=== PATIENT | female | born 1990 | race Caucasian/White ===

== ENCOUNTER 2017-04-16 13:28 | Inpatient (IN) ==
--- NOTE | 2017-04-16 14:00 | Emergency Department Report ---
Nausea/Vomiting/Diarrhea HPI - General Chief complaint: Abdominal Pain Stated complaint: Stomach pain, rectal bleeding Time Seen by Provider: 04/16/17 13:34 Source: patient Mode of arrival: ambulatory Limitations: no limitations - History of Present Illness HPI Narrative: 26yo woman presents to the ER for evaluation of bloody diarrhea. Pt has had two days of bloody stools; today had an episode of hematemesis. Abd pain started last night, but has gotten worse today. Pt has never had sx like this before. Uses ibuprofen occasionally. No h/o anal insertions. Does have a h/o H pylori, but was treated with a prev-marcello and has not had sx since. MD complaint: vomiting, diarrhea, abdominal pain Onset (ago): day(s) (2) Description of Vomiting: blood-streaked Description of Diarrhea: bloody Associated Abdominal Pain: Yes Location of pain: diffuse Quality: cramping, aching Consistency: constant Relieving factors: none Exacerbating factors: eating, bowel movement, vomiting, movement Associated symptoms: denies other symptoms - Related Data Home Medications Medication Instructions Recorded Confirmed Levothyroxine Sodium 88 mcg PO ACB #0 04/09/16 04/16/17 Buspirone [Buspar] 10 mg PO TID 04/16/17 04/16/17 Trazodone HCl 150 mg PO HS 04/16/17 04/16/17 Allergies Allergy/AdvReac Type Severity Reaction Status Date / Time No Known Allergies Allergy Verified 04/16/17 13:45 Review of Systems All systems: reviewed and negative except as stated Gastrointestinal: Reports: as per HPI, abdominal pain, nausea, vomiting, hematochezia [facility] Patient Stated Medical History Now No Medical History Updates: Depr. Hypothyroid. Chronic pain Physical Exam - Limitations Limitations: no limitations - General General appearance: alert, in no apparent distress - Normal Exams: Head:: Normocephalic without trauma Eyes:: Pupils are PERRLA w/ EOMI, No scleral icterus, irritation, or foreign bodies noted ENMT:: No facial trauma, nasal exudates, pharyngeal erythema, or exudates are noted Neck:: Full range of motion, without adenopathy Chest/Respirations:: Clear all leavitt, with good airflow, and symmetry bilaterally Cardiovascular:: Regular rate and rhythm, without murmur or gallop, Pulses 2+ all extremities, capillary refill, <2 seconds all extremities Lymphatic:: No lymphadenopathy, or lymphedema noted Musculoskeletal:: No tenderness, or deformity noted Integumentary:: No rashes, hives, or bruising noted Neurological:: Patient is alert, and oriented Psychiatric:: Patient exhibits, appropriate attention - Abdominal Exam Abdominal exam: Present: soft, tenderness, normal bowel sounds. Absent: distention, guarding, rebound, psoas sign, obturator sign, heel tap sign, Shen 's sign, Rovsing's sign, tenderness at McBurney's Point, hernia Abdominal tenderness: Present: diffuse Course - Consultations Consultation #1: Hospitalist: Will present to the ER for evaluation of pt. Time: 15:56 Vital Signs Temperature 98.1 F 04/16/17 13:30 Pulse Rate 118 H 04/16/17 13:30 Respiratory Rate 16 04/16/17 13:30 Blood Pressure 141/96 H 04/16/17 13:30 Pulse Oximetry 96 04/16/17 13:30 Temperature 98.1 F 04/16/17 13:30 Pulse Rate 90 04/16/17 14:45 Respiratory Rate 16 04/16/17 13:30 Blood Pressure 111/76 04/16/17 14:30 Pulse Oximetry 98 04/16/17 14:45 Nausea/Vomiting/Diarrhea - Differential Diagnosis Likely: traveler's diarrhea, food poisoning, gastroenteritis, drug-induced nausea and vomiting, dehydration - Medical Records Attestation: I reviewed the patient's medical records. - Lab Data Attestation: I reviewed the patient's lab results. Result diagrams: 04/16/17 14:07 04/16/17 14:07 Lab Results 04/16/17 04/16/17 04/16/17 Range/Units 14:06 14:07 14:07 WBC 3.9 L (4.5-11.0) T/MM3 RBC 4.81 (4.00-5.20) M/MM3 Hgb 15.5 (12-16) GM/DL Hct 45.8 (36-46) % MCV 95.2 (80-100) UM3 MCH 32.2 (26-34) UUG MCHC 33.8 (31-37) GM/DL RDW Std Deviation 41.9 (36.9-50.2) FL Plt Count 246 (130-400) T/MM3 MPV 10.6 (9.4-12.4) UM3 Neutrophils % (Manual) 63.0 (33-66) % Band Neutrophils % 3.0 (0-6) % Lymphocytes % (Manual) 19.0 L (23-45) % Monocytes % (Manual) 13.0 H (0-9.0) % Eosinophils % (Manual) 1.0 (0-4) % Metamyelocytes % 1.0 H (0-0) % Neutrophils # (Manual) 2.5 (1.8-7.7) T/MM3 Band Neutrophils # 0.1 T/MM3 Lymphocytes # (Manual) 0.7 L (1-4.8) T/MM3 Monocytes # (Manual) 0.5 (0-0.8) T/MM3 Eosinophils # (Manual) 0.0 (0-0.5) T/MM3 Metamyelocytes # 0.0 T/MM3 RBC Morph Comment Normal INR 1.08 (0.99-1.21) APTT 29.5 (24-36) SEC Turbidity (0-20) Sodium (134-144) MEQ/L Potassium (3.6-5) MEQ/L Chloride (98-107) MEQ/L Carbon Dioxide (22-30) MEQ/L Anion Gap (5-15) MEQ/L BUN (7-17) MG/DL Creatinine (0.7-1.2) MG/DL GFR Calculation BUN/Creatinine Ratio (6-26) RATIO Glucose (65-110) MG/DL Calculated Osmolality (261-280) MOSM/KG Calcium (8.4-10.2) MG/DL Total Bilirubin (0.20-1.30) MG/DL Icterus Index (0-7) AST (14-36) U/L ALT (9-52) U/L Alkaline Phosphatase (38-126) U/L Total Protein (6.3-8.2) G/DL Albumin (3.5-5.0) G/DL Globulin (2.4-3.6) G/DL Albumin/Globulin Ratio (1.1-2.2) RATIO Lipase (23-300) U/L Serum , Qual Negative (Negative) Specimen Hemolysis (0-25) // Range/Units 14:07 WBC (4.5-11.0) T/MM3 RBC (4.00-5.20) M/MM3 Hgb (12-16) GM/DL Hct (36-46) % MCV (80-100) UM3 MCH (26-34) UUG MCHC (31-37) GM/DL RDW Std Deviation (36.9-50.2) FL Plt Count (130-400) T/MM3 MPV (9.4-12.4) UM3 Neutrophils % (Manual) (33-66) % Band Neutrophils % (0-6) % Lymphocytes % (Manual) (23-45) % Monocytes % (Manual) (0-9.0) % Eosinophils % (Manual) (0-4) % Metamyelocytes % (0-0) % Neutrophils # (Manual) (1.8-7.7) T/MM3 Band Neutrophils # T/MM3 Lymphocytes # (Manual) (1-4.8) T/MM3 Monocytes # (Manual) (0-0.8) T/MM3 Eosinophils # (Manual) (0-0.5) T/MM3 Metamyelocytes # T/MM3 RBC Morph Comment INR (0.99-1.21) APTT (24-36) SEC Turbidity < 20 (0-20) Sodium 143 (134-144) MEQ/L Potassium 3.5 L (3.6-5) MEQ/L Chloride 105 (98-107) MEQ/L Carbon Dioxide 26 (22-30) MEQ/L Anion Gap 12 (5-15) MEQ/L BUN 11.0 (7-17) MG/DL Creatinine 0.9 (0.7-1.2) MG/DL GFR Calculation 75 BUN/Creatinine Ratio 12 (6-26) RATIO Glucose 86 (65-110) MG/DL Calculated Osmolality 273 (261-280) MOSM/KG Calcium 10.1 (8.4-10.2) MG/DL Total Bilirubin 0.90 (0.20-1.30) MG/DL Icterus Index < 2 (0-7) AST 18 (14-36) U/L ALT 32 (9-52) U/L Alkaline Phosphatase 57 (38-126) U/L Total Protein 7.6 (6.3-8.2) G/DL Albumin 4.7 (3.5-5.0) G/DL Globulin 2.9 (2.4-3.6) G/DL Albumin/Globulin Ratio 1.6 (1.1-2.2) RATIO Lipase 51 (23-300) U/L Serum , Qual (Negative) Specimen Hemolysis < 15 (0-25) - Radiology Data Attestation: I reviewed the patient's radiology results. CXR: IMPRESSION: No acute cardiopulmonary abnormality. CT ABD/PELV: Findings: The lung bases are clear. The liver is normal. The gallbladder, spleen, pancreas and adrenal glands are within normal limits. Kidneys show a few low-attenuation foci which are too small to definitively characterize. Large 8 mm stone in the superior pole of the right kidney. No abdominal or pelvic lymphadenopathy. The bladder appears normal. Uterus is within normal limits. Small amount of free pelvic fluid. Rectum appears normal. Evaluation is somewhat limited given the absence of oral contrast. No evidence of a bowel obstruction. Splenic flexure of the colon is quite decompressed as is the transverse colon. There is suggestion of some colonic wall thickening at the hepatic flexure. The appendix is gas-filled and normal. No evidence of a small bowel obstruction. Bone windows show unilateral right L5 spondylolysis which is incomplete. There are otherwise within normal limits. Impression infectious or inflammatory colitis in the hepatic flexure of the colon. Crohn's disease is within the differential, particularly given the right renal stone. Disposition Clinical Impression: Bloody diarrhea Disposition: 02 To OBS [facility] Condition: Improved Prescriptions: No Action Trazodone HCl 150 mg PO HS Levothyroxine Sodium 88 mcg PO ACB #0 Buspirone [Buspar] 10 mg PO TID Referrals: Yana Mcmanus APRN [Family Provider] - Time of Disposition: 16:21 - Seen By: physician
[2017-04-16] MEDS: SALINE FLUSH 10ml SYRINGE IVF PRN (14:05)
--- NOTE | 2017-04-16 14:37 | XRay Report ---
Indication: hemoptysis PROCEDURE: XR chest 1V: Encounter: Initial Comparison: None FINDINGS: The lungs are clear. There is no abnormal airspace opacity, pleural effusion or pneumothorax identified. The heart size, pulmonary vasculature and mediastinum are within normal limits. No significant skeletal abnormality is seen. IMPRESSION: No acute cardiopulmonary abnormality. .
[2017-04-16] MEDS ORDERED: SALINE FLUSH 10ml SYRINGE ONE (15:08)
[2017-04-16] MEDS ORDERED: IOHEXOL 300mg/ml 75ml INJECTION ONE (15:08)
[2017-04-16] MEDS ORDERED: NS 100 ML ONE (15:08)
--- NOTE | 2017-04-16 15:54 | CT Scan Report ---
Indication: Bloody diarrhea PROCEDURE: CT abdomen pelvis w con: Encounter: Initial Comparison: None Technique: Axial CT images were performed through the abdomen and pelvis after the administration of intravenous contrast. Coronal and sagittal two-dimensional reformats. Automated Exposure Control and Iterative Reconstruction dose reducing techniques were utilized. Contrast: Omnipaque 300 67 mL Findings: The lung bases are clear. The liver is normal. The gallbladder, spleen, pancreas and adrenal glands are within normal limits. Kidneys show a few low-attenuation foci which are too small to definitively characterize. Large 8 mm stone in the superior pole of the right kidney. No abdominal or pelvic lymphadenopathy. The bladder appears normal. Uterus is within normal limits. Small amount of free pelvic fluid. Rectum appears normal. Evaluation is somewhat limited given the absence of oral contrast. No evidence of a bowel obstruction. Splenic flexure of the colon is quite decompressed as is the transverse colon. There is suggestion of some colonic wall thickening at the hepatic flexure. The appendix is gas-filled and normal. No evidence of a small bowel obstruction. Bone windows show unilateral right L5 spondylolysis which is incomplete. There are otherwise within normal limits. Impression infectious or inflammatory colitis in the hepatic flexure of the colon. Crohn's disease is within the differential, particularly given the right renal stone. .
[2017-04-16 16:55] VITALS: BMI 19.1
--- NOTE | 2017-04-16 17:02 | History & Physical Report ---
<Roma Cherry - Last Filed: 04/16/17 16:53> History of Present Illness Date: 04/16/17 Chief complaint: abdominal pain and blood in stool HPI: Patient is a 26-year-old female who presents to the emergency room with 2-3 day history of abdominal pain and rectal bleeding with small amount of blood in vomitus. She reports she initially had bright red blood in her stools and had blood even when she didn't have a bowel movement. She didn't develop abdominal pain until the next day. She states her last bowel movement was the day before yesterday. Yesterday she developed a fever up to 101.8 and cold sweats. She states she hasn't been able to eat yesterday or today, but she has been able to keep down water today and had a V8 yesterday. She reports that the pain comes in waves. It can be anywhere from a 2-3 up to a 7-8 out of 10. Describes it a gnawing pain and typically has nausea associated with the pain. She hasn't taken anything for the pain other than Pepto-Bismol. Reports that didn't help her symptoms. She took 2 ibuprofen 2 weeks ago. States she doesn't typically take ibuprofen. She has a history of being treated for H. pylori with a Prevpac greater than 5 years ago. She describes her symptoms at the time of diagnosis as "the worst abdominal pain I had ever had." She has had no recent travel. No recent antibiotics. No ingestion of undercooked food. She has no family history of ulcerative colitis, Crohn's disease or other gastrointestinal diseases that she is aware of, other than her 9-year-old sister has irritable bowel syndrome- constipation prominent. Review of Systems Comprehensive ROS: completed and no additional positive findings except those as stated - Constitutional Constitutional: Present: fever(s). Absent: headache(s) - EENMT Eyes: Present: change in vision (describes wavy/fuzzy appearance along the edges of objects in her visual field. Symptoms for the last few days off and on. ). Absent: blurry vision, diplopia - Respiratory Respiratory: Present: dyspnea (states she felt some she got up this morning and had associated dizziness. States symptoms are very minimal at this point.) - Gastrointestinal Gastrointestinal: Present: as per HPI Gastrointestinal Comments: Describes acid reflux symptoms once every 1-2 weeks. Prilosec relieves symptoms. - Genitourinary Genitourinary: Present: abnormal menses (reports she can sometimes go 1-2 months between periods. The last several months states her periods have been normal. Just finished her period yesterday.) Menstruation: cycle variable, menses 1-7 days - Musculoskeletal Musculoskeletal: Present: back pain (2 days ago, none now.) - Neurological Neurological: Present: numbness (of the right knee area when she was having the back pain 2 days ago. Resolved now.) - Psychiatric Psychiatric: Present: depression (quit Latuda several months ago. States when she was on it she felt like a "zombie." Feels she's been more depressed since she was started on it even though she has discontinued it.) PFSH Hypothyroidism Insomnia Bipolar disorder Borderline personality disorder Anxiety Family History: Wifteb-zbepza-rcpwuxr unknown Jeljct-qrvwit-llyqp metoprolol for tachycardia Younger sister-irritable bowel syndrome-constipation prominent - Social History Smoking status: Current every day smoker (smokes 1-2 cigarettes per day) Packs-years: 3 Substance use type: marijuana (daily), crack/cocaine (snorts "a little bit" 1-2 times a month), methamphetamine (try this for the first time 2 days ago-states she smoked a very small amount) Substance last used: days (ago) (smoked weed yesterday-uses it to help with her anxiety) Alcohol intake frequency: a few times a month Last drink: days (ago) (1 beer 2 days ago (rectal bleeding had already occurred prior to drinking the beer)) Housing: house Household members: family (mother) 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[employer]) Medications Home Medications Medication Instructions Recorded Confirmed Type Levothyroxine Sodium 88 mcg PO ACB #0 04/09/16 04/16/17 History Buspirone [Buspar] 10 mg PO TID 04/16/17 04/16/17 History Trazodone HCl 150 mg PO HS 04/16/17 04/16/17 History Allergies Allergy/AdvReac Type Severity Reaction Status Date / Time No Known Allergies Allergy Verified 04/16/17 13:45 Exam Vital Signs: Temperature 98.1 F 04/16/17 13:30 Pulse Rate 90 04/16/17 14:45 Respiratory Rate 16 04/16/17 13:30 Blood Pressure 111/76 04/16/17 14:30 Pulse Oximetry 98 04/16/17 14:45 - Constitutional Present: no acute distress, well nourished, well developed, thin - Routine HEENT Exam Head: Present: normocephalic, atraumatic Eye: Present: EOMI, PERRL ENT: Present: mucous membranes moist, oropharynx clear, dentition normal - Routine Neck Exam Present: supple, full ROM - Routine Respiratory Exam Present: CTA bilaterally. Absent: wheezes - Routine Cardiovascular Exam Present: RRR, S1, S2. Absent: murmur - Routine Abdominal Exam Present: soft, normoactive bowel sounds, tenderness (mild diffuse tenderness. Moderate tenderness. Umbilical, suprapubic and right lower quadrant.), non distended. Absent: rebound, guarding, firm, organomegaly, mass - Routine Extremities Exam Present: no edema, normal capillary refill - Routine Back/Spine/Pelvis Exam Back/Spine: Absent: CVA tenderness - Routine Skin Exam Present: dry, warm - Routine Neurological Exam Present: alert, oriented X3, moving all extremities, normal tone Cranial nerves III through XII intact. - Routine Psychiatric Exam Present: normal affect, normal thought process. Absent: suicidal ideation Results - Labs CBC & Chem 7: 04/16/17 14:07 04/16/17 14:07 - Imaging and Cardiology Chest x-ray Additional comments: Chest x-ray performed in ER FINDINGS: The lungs are clear. There is no abnormal airspace opacity, pleural effusion or pneumothorax identified. The heart size, pulmonary vasculature and mediastinum are within normal limits. No significant skeletal abnormality is seen. IMPRESSION: No acute cardiopulmonary abnormality. CT scan - abdomen Additional comments: Abdominal CT Findings: The lung bases are clear. The liver is normal. The gallbladder, spleen, pancreas and adrenal glands are within normal limits. Kidneys show a few low-attenuation foci which are too small to definitively characterize. Large 8 mm stone in the superior pole of the right kidney. No abdominal or pelvic lymphadenopathy. The bladder appears normal. Uterus is within normal limits. Small amount of free pelvic fluid. Rectum appears normal. Evaluation is somewhat limited given the absence of oral contrast. No evidence of a bowel obstruction. Splenic flexure of the colon is quite decompressed as is the transverse colon. There is suggestion of some colonic wall thickening at the hepatic flexure. The appendix is gas-filled and normal. No evidence of a small bowel obstruction. Bone windows show unilateral right L5 spondylolysis which is incomplete. There are otherwise within normal limits. Impression infectious or inflammatory colitis in the hepatic flexure of the colon. Crohn's disease is within the differential, particularly given the right renal stone. Assessment and Plan (1) Bloody diarrhea Current visit: Yes Status: Acute DVT Prophylaxis: SCD's GI Prophylaxis: Protonix Resuscitation Status: Full Code Assessment and Plan: Impression: Bloody diarrhea with abdominal pain and mild hematemesis Diffuse abdominal pain - differential to include ulcerative colitis, Crohn's disease, infectious etiology Hypokalemia-(POA) Hypothyroidism Insomnia Borderline personality disorder Bipolar disorder Generalized anxiety disorder Illicit substance use Plan: Admit to observation under the care of the hospitalist team, Dr. Chow attending, for further workup to include GI panel, stool for occult blood, urinalysis, repeat CBC and CMP in a.m. Start Protonix 40 mg IV for GI prophylaxis and for hematemesis/abdominal pain Zofran IV PRN nausea, morphine IV PRN pain. IV fluids for rehydration - normal saline +20 mEq KCl given mild hypokalemia on admission. Clear liquid diet SCDs for DVT prophylaxis. Avoid Lovenox given GI bleed. Will check TSH given diagnosis of hypothyroidism -patient reports it has been " a long time" since she's had TSH checked. Continue levothyroxine. Patient would likely benefit from psych consult given her untreated bipolar disorder, assuming she would agree to treatment. This could be pursued on OP basis. Continue BuSpar and trazodone for anxiety and insomnia. Will further discuss treatment plan with attending. Upon discharge, patient's care will return to her PCP, Yana Mcmanus APRN, at [facility]. Hospital Course Summary Disclaimer: The visit summary below is not to be considered part of the above Progress Note. Hospital Course: Hospital admission for observation 04/16/17 17:51 Impression: Bloody diarrhea with abdominal pain and mild hematemesis Diffuse abdominal pain - differential to include ulcerative colitis, Crohn's disease, infectious etiology Hypokalemia-(POA) Hypothyroidism Insomnia Borderline personality disorder Bipolar disorder Generalized anxiety disorder Illicit substance use Plan: Admit to observation under the care of the hospitalist team, Dr. Chow attending, for further workup to include GI panel, stool for occult blood, urinalysis, repeat CBC and CMP in a.m. Start Protonix 40 mg IV for GI prophylaxis and for hematemesis/abdominal pain Zofran IV PRN nausea, morphine IV PRN pain. IV fluids for rehydration - normal saline +20 mEq KCl given mild hypokalemia on admission. Clear liquid diet SCDs for DVT prophylaxis. Avoid Lovenox given GI bleed. Will check TSH given diagnosis of hypothyroidism -patient reports it has been " a long time" since she's had TSH checked. Continue levothyroxine. Patient would likely benefit from psych consult given her untreated bipolar disorder, assuming she would agree to treatment. This could be pursued on OP basis. Continue BuSpar and trazodone for anxiety and insomnia. Will further discuss treatment plan with attending. Upon discharge, patient's care will return to her PCP, Yana Mcmanus APRN, at [facility]. <Kathryn Chow - Last Filed: 04/16/17 19:10> History of Present Illness Date: 04/16/17 [facility] Patient Stated Medical History Seizures Yes: 07/2016 Bronchitis Yes Gastroesophageal Reflux Yes Disease Other Infectious Yes: h-pylori Bipolar Disorder Yes Depression Yes Post Traumatic Stress Disorder Yes Substance Use Disorder cocaine, marijuana Other Behavioral Health Yes: borderline personality disorder Now No Exam Vital Signs: Temperature 97.7 F 04/16/17 16:50 Pulse Rate 75 04/16/17 16:50 Respiratory Rate 16 04/16/17 16:50 Blood Pressure 121/87 04/16/17 16:50 Pulse Oximetry 100 04/16/17 16:50 Oxygen Delivery Method Room Air Height/Weight/BMI: Height 1.65 m Weight 52 kg Body Mass Index 19.1 Results - Labs CBC & Chem 7: 04/16/17 14:07 04/16/17 14:07 Assessment and Plan (1) Bloody diarrhea Current visit: Yes Status: Acute Assessment and Plan: 04/16/2017-I reviewed this chart, the patient history, and the CHILD GUIDANCE COUNSELOR's/PA's documented findings as above. We discussed and formulated the assessment and plan as above with the additions below.-Dr. Chow The patient was seen this evening in her room. She describes having blood in her stool since approximately last Saturday which would be April 12. She states the initial time she noticed blood she thought she had a bowel movement but it was all blood. She did have a very small blood clot yesterday from her rectum and then she has had no bowel movements or bleeding from her rectum since that time. She developed abdominal pain yesterday mostly in the mid and lower abdomen. She also developed a fever yesterday with temperature of 101.6 associated with cold sweats and feeling weak and shaky. Today she had a little phlegm in her throat and coughed that up and it was a little blood-streaked. She had a bloody nose twice last night. She was recently on her period and her last day of her period was yesterday. She states that it was a normal period without heavy bleeding. Yesterday she felt like she had to have a bowel movement but had no stools or blood then. She had some vomiting yesterday after trying to eat. She knows of no sick contacts but does work at a local [employer]. She has noticed some frequent urination but no dysuria or blood in her urine. She feels a little bit dizzy with movement since yesterday. She's noticed some shimmering in the lining around things with her vision off and on today. She has no history of migraines. She states she's felt short of breath yesterday and today but has had no cough. She feels mildly lightheaded. She has no personal or family history of blood clots that she is aware of. She notices some occasionally enlarged lymph nodes in the submandibular region but has not noticed that today. On exam she is alert and oriented and in no acute distress. She is pleasant and cooperative. She is quite thin with a BMI of 19. HEENT reveals sclerae to be anicteric and pupils are equal round and reactive. Oropharynx is moist. No oral lesions. She does have some piercings in her ears and her nose. Neck is supple with mildly enlarged but nontender submandibular glands which are equal bilaterally. Chest is clear to auscultation. Cardiovascular reveals a regular rate and rhythm without murmur S3 or S4. Abdomen is soft, scaphoid, with normal bowel sounds. There is some mild tenderness throughout. Bowel sounds are present. Extremities are free of clubbing, cyanosis or edema. Skin is warm other than mild coolness to her feet which she states is chronic. No rashes on her skin. She does have multiple tattoos. Laboratory reveals mildly low white count without left shift. Hemoglobin is 15.5. INR and PTT are normal. Comprehensive metabolic is normal other than potassium of 3.5. Calcium is normal. C-reactive protein is pending. TSH is elevated at 13. Serum test is negative. CT abdomen was reviewed and shows infectious or inflammatory colitis in the hepatic flexure of the colon. Crohn's disease is within the differential, particularly given the right renal stone. Chest x-ray is normal Impression Hematochezia Abdominal pain Fever Possible Colitis at the hepatic flexure on CAT scan Hypothyroidism with elevated TSH despite being on levothyroxine Hypokalemia mild Substance abuse Renal stone on the right-8 mm, nonobstructing Tobaccoism Plan With fever, rheumatic he showed an abdominal pain I'm concerned about possible infectious colitis. Will start Flagyl and Cipro after urine sample as been obtained. Obtain UA to rule out a UTI. Will continue IV fluids for poor by mouth intake. We'll replace potassium IV. We'll give pain medication as needed. If abdominal pain is not improving may need surgical consultation. Up with assist only sent the patient is mildly lightheaded Check urine drug screen regarding history of substance abuse Recommend tobacco cessation Recommended abstinence from illicit drug use Hospital Course Summary Disclaimer: The visit summary below is not to be considered part of the above Progress Note.
[2017-04-16] MEDS ORDERED: ONDANSETRON 4 MG/2 ML INJECTION IVP PRN (17:24)
[2017-04-16] MEDS: PANTOPRAZOLE 40 MG INJECTION IVP SCH (17:41)
[2017-04-16] MEDS: NS IV SCH (17:44)
[2017-04-16] MEDS: POTASSIUM PHOSPHATE IV SCH (17:44)
[2017-04-16] MEDS ORDERED: HYDROCODONE/APAP 5mg/325mg TABLET PO PRN (18:58)
[2017-04-16] MEDS: METOCLOPRAMIDE 10mg/2ml INJECTION IVP PRN (19:10)
[2017-04-16] MEDS: MORPHINE SULFATE 4 MG SYRINGE IVP PRN ×2 (19:14→21:23)
[2017-04-16] MEDS: CIPROFLOXACIN PB 400 MG/200 ML BAG IV SCH (19:37)
[2017-04-16] MEDS: NS FLUSH BAG 500ml IV PRN (19:38)
[2017-04-16] MEDS: BUSPIRONE 10 MG TABLET PO SCH (21:27)
[2017-04-16] MEDS: MetroNIDAZOLE PB 500 MG/100 ML BAG IV SCH (21:28)
[2017-04-16] MEDS: TRAZODONE 50 MG TABLET PO SCH (22:59)
[2017-04-17] MEDS: MORPHINE SULFATE 4 MG SYRINGE IVP PRN ×4 (02:11→19:34)
[2017-04-17] MEDS: SALINE FLUSH 10ml SYRINGE IVF PRN (02:15)
[2017-04-17] MEDS: LEVOTHYROXINE 88 MCG TABLET PO SCH (06:46)
[2017-04-17] MEDS: CIPROFLOXACIN PB 400 MG/200 ML BAG IV SCH ×2 (06:46→18:19)
[2017-04-17] MEDS: METOCLOPRAMIDE 10mg/2ml INJECTION IVP PRN ×2 (07:13→13:58)
[2017-04-17] MEDS: MetroNIDAZOLE PB 500 MG/100 ML BAG IV SCH ×2 (08:04→20:40)
[2017-04-17] MEDS: POTASSIUM PHOSPHATE IV SCH ×3 (09:29→22:16)
[2017-04-17] MEDS: NS IV SCH ×3 (09:29→22:16)
[2017-04-17] MEDS: PANTOPRAZOLE 40 MG INJECTION IVP SCH (09:30)
[2017-04-17] MEDS: BUSPIRONE 10 MG TABLET PO SCH ×3 (09:31→20:42)
--- NOTE | 2017-04-17 09:43 | Progress Note ---
<Roma Cherry - Last Filed: 04/17/17 10:36> Subjective: Patient seen lying in her bed this morning. She reports she had pain overnight that woke her up. She had pain again this a.m. she rated at 9/10. Pain medicine helped and her pain was much less when I saw her. She wants to eat. Has not had a stool. Some dry heaving this am. Objective Vital signs: Temperature 97 F 04/17/17 07:58 Pulse Rate 64 04/17/17 07:58 Respiratory Rate 18 04/17/17 07:58 Blood Pressure 98/64 04/17/17 07:58 Pulse Oximetry 99 04/17/17 07:58 Height/Weight/BMI: Height 1.65 m Weight 56.6 kg Body Mass Index 19.1 - Constitutional Present: no acute distress, well nourished, well developed - Routine HEENT Exam Head: Present: normocephalic, atraumatic ENT: Present: mucous membranes moist, dentition normal - Routine Respiratory Exam Present: CTA bilaterally. Absent: wheezes - Routine Cardiovascular Exam Present: RRR, S1, S2. Absent: murmur - Routine Abdominal Exam Present: soft, normoactive bowel sounds, tenderness (moderate pain R mid abdomen ), non distended - Routine Extremities Exam Present: no edema, normal capillary refill - Routine Skin Exam Present: dry, warm - Routine Neurological Exam Present: alert, oriented X3 - Routine Lymphatic Exam Lymphatic: Absent: adenopathy - Routine Psychiatric Exam Present: normal affect, normal thought process Results - Labs CBC & Chem 7: 04/17/17 04:41 04/17/17 04:41 Labs: UA neg other than ketones Assessment and Plan (1) Bloody diarrhea Current visit: Yes Status: Acute Assessment and Plan: Impression Hematochezia Abdominal pain Fever Possible Colitis at the hepatic flexure on CAT scan Hypothyroidism with elevated TSH despite being on levothyroxine Hypokalemia mild-resolved Substance abuse Renal stone on the right-8 mm, nonobstructing Tobaccoism PLAN DC Telemetry as she has no cardiac concerns Increase levothyroxine dose given elevated TSH and repeat TSH as outpatient in 4 -[address] Encarnacion for his expert opinion given the ongoing pain and abnormal findings on CT - continue clear liquids in the event he wants to scope her Continue antibiotics for probable infectious colitis as ordered Sepsis Assessment - Evaluation Sepsis screening result: No Definite Risk Hospital Course Summary Disclaimer: The visit summary below is not to be considered part of the above Progress Note. Hospital Course: Hospital admission for observation 04/16/17 17:51 Impression: Bloody diarrhea with abdominal pain and mild hematemesis Diffuse abdominal pain - differential to include ulcerative colitis, Crohn's disease, infectious etiology Hypokalemia-(POA) Hypothyroidism Insomnia Borderline personality disorder Bipolar disorder Generalized anxiety disorder Illicit substance use Plan: Admit to observation under the care of the hospitalist team, Dr. Chow attending, for further workup to include GI panel, stool for occult blood, urinalysis, repeat CBC and CMP in a.m. Start Protonix 40 mg IV for GI prophylaxis and for hematemesis/abdominal pain Zofran IV PRN nausea, morphine IV PRN pain. IV fluids for rehydration - normal saline +20 mEq KCl given mild hypokalemia on admission. Clear liquid diet SCDs for DVT prophylaxis. Avoid Lovenox given GI bleed. Will check TSH given diagnosis of hypothyroidism -patient reports it has been " a long time" since she's had TSH checked. Continue levothyroxine. Patient would likely benefit from psych consult given her untreated bipolar disorder, assuming she would agree to treatment. This could be pursued on OP basis. Continue BuSpar and trazodone for anxiety and insomnia. Will further discuss treatment plan with attending. Upon discharge, patient's care will return to her PCP, Yana Mcmanus APRN, at [facility]. 04/17/17 DC Telemetry as she has no cardiac concerns Increase levothyroxine dose given elevated TSH and repeat TSH as outpatient in 4 -[address] Encarnacion for his expert opinion given the ongoing pain and abnormal findings on CT - continue clear liquids in the event he wants to scope her Continue antibiotics for probable infectious colitis as ordered <Kathryn Chow - Last Filed: 04/17/17 13:55> Objective Vital signs: Temperature 97 F 04/17/17 07:58 Pulse Rate 64 04/17/17 07:58 Respiratory Rate 18 04/17/17 07:58 Blood Pressure 98/64 04/17/17 07:58 Pulse Oximetry 99 04/17/17 07:58 Oxygen Delivery Method Room Air Oxygen Flow Rate 2 Height/Weight/BMI: Height 1.65 m Weight 56.6 kg Body Mass Index 19.1 Results - Labs CBC & Chem 7: 04/17/17 04:41 04/17/17 04:41 Assessment and Plan (1) Bloody diarrhea Current visit: Yes Status: Acute Assessment and Plan: 04/17/2017-I reviewed this chart, the patient history, and the ACCOUNTING INTERN's/PA's documented findings as above. We discussed and formulated the assessment and plan as above with the additions below.-Dr. Chow Patient states she's feeling about the same. She has not had any fevers. She has had only one small dark stool since admission. She did not see any gross blood. Hemoccult was negative and GI panel is also negative. She still complains of abdominal pain and states it is unchanged. She does feel hungry and would like to eat. I am she is alert and in no acute distress. Chest is clear to auscultation. Cardiovascular reveals a regular rate and rhythm. Abdomen is soft with mild tenderness throughout. Hypoactive bowel sounds. Extremities are free of edema. Skin is warm and dry and without rashes. White count is stable. Hemoglobin is down at [place], likely secondary to IV fluids. Impression Abdominal pain continues. Stool is now nonbloody grossly and by Hemoccult testing. GI panel is negative. In light of negative GI panel, will discuss further with Dr. Encarnacion. Hospital Course Summary Disclaimer: The visit summary below is not to be considered part of the above Progress Note.
--- NOTE | 2017-04-17 13:05 | General Surgery Consult Note ---
Consult date: 04/17/17 Attending Physician: Kathryn Chow MD Reason for consult: abdominal pain PFS Patient Stated Medical History Seizures Yes: 07/2016 Bronchitis Yes Gastroesophageal Reflux Yes Disease Other Infectious Yes: h-pylori Bipolar Disorder Yes Depression Yes Post Traumatic Stress Disorder Yes Substance Use Disorder cocaine, marijuana borderline personality disorder Medical History Updates: Depression. Bipolar. Hypothyroid. 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 Home Medications Medication Instructions Recorded Confirmed Type Levothyroxine Sodium 88 mcg PO ACB #0 04/09/16 04/16/17 History Buspirone [Buspar] 10 mg PO TID 04/16/17 04/16/17 History Trazodone HCl 150 mg PO HS 04/16/17 04/16/17 History Allergies Allergy/AdvReac Type Severity Reaction Status Date / Time No Known Allergies Allergy Verified 04/16/17 13:45 Review of Systems 10-point ROS: negative except for HPI and the following: - Gastrointestinal Gastrointestinal: Present: blood in stools, other (see HPI) - Neurological Neurological: Present: seizures - Psychiatric Psychiatric: Present: anxiety, other (Bipolar) - Endocrine Endocrine: Present: thyroid problems - Vital Signs Last Vital Signs Temp 97 F 04/17/17 07:58 Pulse 64 04/17/17 07:58 Resp 18 04/17/17 07:58 BP 98/64 04/17/17 07:58 Pulse Ox 99 04/17/17 07:58 - Laboratory Result Diagrams: 04/17/17 04:41 04/17/17 04:41 General Surgery Results - Results Labs: 04/17/17 04:41 04/17/17 04:41 Hospital Course Summary Disclaimer: The visit summary below is not to be considered part of the above Progress Note. Hospital Course: Hospital admission for observation 04/16/17 17:51 Impression: Bloody diarrhea with abdominal pain and mild hematemesis Diffuse abdominal pain - differential to include ulcerative colitis, Crohn's disease, infectious etiology Hypokalemia-(POA) Hypothyroidism Insomnia Borderline personality disorder Bipolar disorder Generalized anxiety disorder Illicit substance use Plan: Admit to observation under the care of the hospitalist team, Dr. Chow attending, for further workup to include GI panel, stool for occult blood, urinalysis, repeat CBC and CMP in a.m. Start Protonix 40 mg IV for GI prophylaxis and for hematemesis/abdominal pain Zofran IV PRN nausea, morphine IV PRN pain. IV fluids for rehydration - normal saline +20 mEq KCl given mild hypokalemia on admission. Clear liquid diet SCDs for DVT prophylaxis. Avoid Lovenox given GI bleed. Will check TSH given diagnosis of hypothyroidism -patient reports it has been " a long time" since she's had TSH checked. Continue levothyroxine. Patient would likely benefit from psych consult given her untreated bipolar disorder, assuming she would agree to treatment. This could be pursued on OP basis. Continue BuSpar and trazodone for anxiety and insomnia. Will further discuss treatment plan with attending. Upon discharge, patient's care will return to her PCP, Yana Mcmanus APRN, at [facility]. 04/17/17 DC Telemetry as she has no cardiac concerns Increase levothyroxine dose given elevated TSH and repeat TSH as outpatient in 4 -[address] Encarnacion for his expert opinion given the ongoing pain and abnormal findings on CT - continue clear liquids in the event he wants to scope her Continue antibiotics for probable infectious colitis as ordered Sepsis Assessment - Evaluation Sepsis screening result: No Definite Risk
[2017-04-17] MEDS ORDERED: Bisacodyl EC TAB 5 MG TABLET PO ONE (13:30)
--- NOTE | 2017-04-17 13:45 | Consultation ---
DATE OF CONSULTATION 04/17/2017 FINDINGS Mrs. Resendiz is a 26-year-old female whom I was asked to see today as a result of her history for rectal bleeding and her history for abdominal pain. Patient states that over the last weekend, about 4-5 days ago, she began to experience a component of abdominal pain. This pain was located throughout her entire abdomen. Patient states over the weekend she had several bloody stools. Patient states that there were some times that she was "passing nothing but blood". She described this as bright red in nature. The patient denied any prior/antecedent history for rectal bleeding. Patient states over the last few days her rectal bleeding has resolved. She continues however to have severe "gnawing" abdominal pain. This pain is somewhat episodic in nature, "it comes and goes". Patient states that she has had some nausea and vomiting in association with the pain. She denies any recent travel or ingestion of "unusual foods". She denies any family history specifically for inflammatory bowel disease. PAST MEDICAL HISTORY Performed by my nurse practitioner, Leroy Schuler. PAST SURGICAL HISTORY Performed by my nurse practitioner, Leroy Schuler. MEDICATIONS Performed by my nurse practitionerLeroy. ALLERGIES Performed by my nurse practitionerLeroy. SOCIAL HISTORY Performed by my nurse practitionerLeroy. FAMILY HISTORY Performed by my nurse practitionerLeroy. REVIEW OF SYSTEMS Performed by my nurse practitionerLeroy. PHYSICAL EXAMINATION GENERAL: Mrs. Resendiz is a 26-year-old female who did not appear to be in acute distress upon my entering the room. She was sleeping with her "sheets over her head". VITALS: Afebrile. Normotensive. Current vitals include temperature 97.0, respirations 18, blood pressure 98/64, SaO2 99% on room air. HEENT: Normocephalic. Pupils are equally round and react to light and accommodation. CHEST: Clear to auscultation bilaterally. HEART: Regular rate and rhythm. Normal S1, S2, without gallops, murmurs or clicks. ABDOMEN: Palpation of the abdomen revealed tenderness in the left lower quadrant and within her right upper quadrant of her abdomen. She does display a component of some voluntary guarding. I did not appreciate any evidence for involuntary guarding or rebound. No evidence for hepatomegaly or other abnormal masses. EXTREMITIES: Without clubbing, cyanosis, or edema. NEURO: Cranial nerves II-XII grossly intact. Patient without focal, motor, or sensory deficits. LABORATORY/RADIOGRAPHIC EVALUATION The patient had a CBC and CMP obtained yesterday upon admission as well as a repeat CBC today. Her white count is not elevated. Hemoglobin is stable at around 14-15. CMP was without marked abnormalities. Stool culture has been obtained and is pending. I do see that her stool is occult negative. I do see upon her drug screen that she tested positive for amphetamines, cocaine and cannabis. Radiographically she did have a CT scan of her abdomen and pelvis. CT scan revealed some "suggestion of colonic wall thickening at the hepatic flexure". Findings were indicative for that of an infectious or an inflammatory colitis involving the hepatic flexure. Additionally she was found to have an 8 mm stone in the superior pole of the right kidney. ASSESSMENT 26-year-old female with history for rectal bleeding and abdominal pain. CT scan is suggestive for colitis. PLAN Patient at this time does not appear to have an acute surgical process/abdomen. I agree with current management of this patient. Patient is being treated empirically for an infectious colitis. She is on Cipro and Flagyl. Stool cultures have been obtained and are pending at the time of dictation. If her stool cultures are positive, will continue with ongoing treatment for infectious colitis. If her stool cultures return as negative, I would recommend that she proceed with colonoscopy for further evaluation given her history for rectal bleeding. The above plan was discussed with the patient. The patient understood and agreed. [facility] MEDICAL CENTERAshley
[2017-04-17] MEDS ORDERED: POLYETHYL. GLYCOL 3350 BOTTLE 238 GM PO ONE (15:30)
[2017-04-17] MEDS ORDERED: ONDANSETRON 4 MG/2 ML INJECTION IVP PRN (19:32)
[2017-04-17] MEDS: NS FLUSH BAG 500ml IV PRN (20:00)
[2017-04-17] MEDS: TRAZODONE 50 MG TABLET PO SCH (22:47)
[2017-04-18] MEDS: LEVOTHYROXINE 88 MCG TABLET PO SCH (05:37)
[2017-04-18] MEDS: NS IV SCH ×2 (05:41→10:32)
[2017-04-18] MEDS: POTASSIUM PHOSPHATE IV SCH ×2 (05:41→10:32)
[2017-04-18] MEDS ORDERED: FLEET PHOSPHO - SODA ENEMA 133ml PR PRN (06:00)
[2017-04-18] MEDS: CIPROFLOXACIN PB 400 MG/200 ML BAG IV SCH (06:31)
[2017-04-18] MEDS: PANTOPRAZOLE 40 MG INJECTION IVP SCH (08:57)
[2017-04-18] MEDS: MetroNIDAZOLE PB 500 MG/100 ML BAG IV SCH (09:02)
[2017-04-18] MEDS: BUSPIRONE 10 MG TABLET PO SCH ×2 (10:19→14:51)
[2017-04-18] MEDS ORDERED: LR 1,000 ML IV SCH (11:30)
--- NOTE | 2017-04-18 12:52 | Anesthesia Preoperative Report ---
Anesthesia Preoperative Record - Date and Time Date: 04/18/17 Preoperative Diagnosis: Abdominal Pain, Colitis Proposed Procedure: C-scope NPO Since Date: 04/18/17 NPO Since Time: 00:00 Allergies/Adverse Reactions: Allergies Allergy/AdvReac Type Severity Reaction Status Date / Time No Known Allergies Allergy Verified 04/16/17 13:45 - Vital Signs Vital Signs: Temperature 98.6 F 04/18/17 11:08 Pulse Rate 66 04/18/17 11:08 Respiratory Rate 19 04/18/17 11:08 Blood Pressure 118/76 04/18/17 11:08 Pulse Oximetry 99 04/18/17 11:08 Oxygen Delivery Method Room Air - Medications Inpatient Medications: Current Medications Acetaminophen/Hydrocodone Bitart (Osborn 5/325) 1 tab PO Q4H PRN PRN Reason: Pain Last Admin: 04/17/17 13:59 Dose: 1 tab Buspirone HCl (Buspar) 10 mg PO TID [facility] Last Admin: 04/18/17 10:19 Dose: Not Given Potassium Phosphate 20 meq/ (Sodium Chloride) 1,004.5455 mls @ 125 mls/hr IV .Q8H3M [facility] Last Infusion: 04/18/17 11:09 Dose: 0 mls/hr Ciprofloxacin Lactate (Cipro Premix) 400 mg in 200 mls @ 200 mls/hr IV Q12H [facility] Last Infusion: 04/18/17 07:31 Dose: Infused Metronidazole/Sodium Chloride (Flagyl Iv Premix) 500 mg in 100 mls @ 100 mls/ hr IV Q12HR [facility] Last Infusion: 04/18/17 10:02 Dose: Infused Lactated Ringer's (Lactated Ringers) 1,000 mls @ 75 mls/hr IV .[id number] [facility] Last Admin: 04/18/17 11:21 Dose: 75 mls/hr Levothyroxine Sodium (Synthroid) 88 mcg PO ACB [facility] Last Admin: 04/18/17 05:37 Dose: 88 mcg Metoclopramide HCl (Reglan) 10 mg IVP Q6H PRN Last Admin: 04/17/17 13:58 Dose: 10 mg Morphine Sulfate (Morphine Sulfate Inj) 1 - 2 mg IVP Q2H PRN PRN Reason: Pain Last Admin: 04/17/17 19:34 Dose: 2 mg Ondansetron HCl (Zofran) 4 mg IVP O PRN PRN Reason: Nausea &/or vomiting Last Admin: 04/17/17 19:36 Dose: 4 mg Pantoprazole Sodium (Protonix Iv) 40 mg IVP DAILY [facility] Last Admin: 04/18/17 08:57 Dose: 40 mg Sodium Chloride (Iv Flush) 10 - 80 ml IVF PRN PRN PRN Reason: Flushing Last Admin: 04/17/17 02:15 Dose: 40 ml Sodium Chloride (Normal Saline) 500 ml IV PRN PRN Last Admin: 04/17/17 20:00 Dose: 500 ml Sodium Phosphate (Fleet Enema) 1 enema [place] PRN PRN Trazodone HCl (Desyrel) 150 mg PO HS [facility] Last Admin: 04/17/17 22:47 Dose: 150 mg Home Medications: Home Medications Medication Instructions Recorded Confirmed Type Levothyroxine Sodium 88 mcg PO ACB #0 04/09/16 04/16/17 History Buspirone [Buspar] 10 mg PO TID 04/16/17 04/16/17 History Trazodone HCl 150 mg PO HS 04/16/17 04/16/17 History Is Patient on Beta Aniyah?: No - Medical History Respiratory: DENIES: Asthma, Bronchitis, Chronic Obstructive Pulmonary Disease (COPD), Dyspnea, Orthopnea, Pulmonary Embolism, Pneumonia, Upper Respiratory Infection, Pulmonary Edema, Sleep Apnea, Tuberculosis, Other Cardiovascular: DENIES: Abnormal EKG, Angina, Arrhythmia, Congestive Heart Failure, Coronary Artery Disease, Heart Murmur, Hypertension, Hypotension, High Cholesterol, Myocardial Infarction, Rheumatic Fever, Valvular Heart Disease Gastrointestional: Reports: Other Neuro/Musculoskeletal: Reports: Seizures (last 2015. 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 Patient consents. Nursing pain assessment noted. Present for Discussion: family member Attestation Statement: Prior to the delivery of any anesthetic medication, I examined the patient, developed the plan, obtained the patient's consent and discussed the risk and benefits of the procedure with the patient/guardian. - Additional Information Seen by Anesthesia: Yes
--- NOTE | 2017-04-18 13:49 | General Surgery Procedure Note ---
Date of Procedure: 04/18/17 Surgeon: Alysha Postoperative Diagnosis: Normal colonoscopy Procedure: colonoscopy with random biopsies Estimated Blood Loss: See Anesthesia Record.
--- NOTE | 2017-04-18 14:08 | Anesthesia Postoperative Note ---
- Date and Time Date: 04/18/17 Time: 14:08 - Status Patient Participated in Evaluation: Patient Participated in Person Vital Signs: Temperature 98.5 F 04/18/17 13:50 Pulse Rate 49 L 04/18/17 14:00 Respiratory Rate 16 04/18/17 14:00 Blood Pressure 104/70 04/18/17 14:00 Pulse Oximetry 100 04/18/17 14:00 Oxygen Delivery Method Room Air Respiratory Function: Airway Patent Cardiovascular Function: Regular Pulse EKG Rhythm: Normal Sinus Rhythm Mental Status: Alert and Oriented Hydration: Taking PO Fluids Complications During Recover: None Apparent - Follow-Up Instructions Instructions: Per Surgeon
[2017-04-18 14:32] VITALS: RESP 17
[2017-04-18 15:29] VITALS: TEMP 98.1
--- NOTE | 2017-04-18 15:50 | Operative Note ---
DATE OF SERVICE 04/18/2016 SURGEON Thanh Encarnacion MD PREOPERATIVE DIAGNOSIS Personal history for hematochezia, abdominal pain, abnormal CT scan revealing possible colitis at hepatic flexure. POSTOPERATIVE DIAGNOSIS Personal history for hematochezia, abdominal pain, abnormal CT scan revealing possible colitis at hepatic flexure, normal colonoscopy. PROCEDURE Colonoscopy with random biopsies throughout colon via cold biopsy technique. ANESTHESIA TIVA BRIEF HISTORY/INDICATIONS Ms. Resendiz is a 26-year-old female who recently was admitted to our hospital as a result of her history for bloody diarrhea, severe abdominal pain and a CT scan obtained through the emergency room revealing evidence for possible colitis involving her hepatic flexure. The patient did undergo an infectious workup for her colitis which returned as negative. As a result of the above indications, it was recommended that she undergo endoscopic evaluation. For completeness please refer to notes included in the patient's chart. FINDINGS Upon colonoscopy, the mucosa was normal throughout the entire colon. There was no evidence for erythema, ulcerations. No evidence for old blood upon the surface of the mucosa. There was no evidence for angiodysplastic lesions, polyps, diverticula or bharat malignancies. DESCRIPTION OF PROCEDURE After informed consent was obtained, patient was brought to the endoscopy suite and placed on the table in the left lateral decubitus position. The patient subsequently underwent total intravenous anesthesia by the nurse macroeconomics professor per my request. Formal time-out was then completed. Next a digital rectal examination was performed. Normal sphincter tone. No rectal masses were appreciated. An Olympus colonoscope was inserted in the anus and advanced through the lumen under direct visualization at all times until the cecum was ascertained. Triangulation of the teniae coli, ileocecal valve and appendiceal lumen were all visualized. Scope was then slowly withdrawn again while maintaining visualization of the lumen at all times. Given her history for loose stools/bloody diarrhea, I elected to proceed with some random biopsies throughout the colon. These were obtained from the ascending colon, transverse colon, descending colon and rectum and placed within a single container. The scope was slowly withdrawn again while maintaining visualization of the lumen at all times. The entire colon was without any mucosal abnormalities as stated above. There was no evidence for colitis. The mucosa was not edematous, erythematous in nature nor was there any evidence for ulcerations. Furthermore , there was no evidence for angiodysplastic lesions, polyps, diverticula or bharat malignancies. Once the colonoscope was withdrawn back to the rectal vault , a J-maneuver was then performed. No worrisome perianal pathology was noted. Scope was allowed to straighten and withdrawn through the anal verge. The patient tolerated the procedure without difficulty and was sent back to the preop area in stable condition. Await the biopsy results from today's random biopsies and will proceed accordingly with further recommendations thereafter. ARLEEN
--- NOTE | 2017-04-18 16:25 | Discharge Instructions ---
Discharge Plan - Med Rec/Dispo Referrals/Follow Up: Yana Mcmanus APRN [Family Provider] - 1 Week Additional Instructions: Dr Encarnacion's office will call you regarding your colon biopsy results. Prescriptions: New Levothyroxine Tab [Synthroid] 1 tab PO ACB #30 tab Omeprazole 20 mg PO DAILY #10 tablet. Continue Buspirone [Buspar] 10 mg PO TID Discontinued Levothyroxine Sodium 88 mcg PO ACB #0 No Action Trazodone HCl 150 mg PO HS Discharge Instructions/Outpatient Orders: Final Provider Discharge Instructions Location: Determined By Patient - Disposition 01 Discharged Home, Self-Care
--- NOTE | 2017-04-18 16:34 | Discharge Summary ---
Discharge Information Date of admission: 04/18/17 07:52 Attending Physician: Kathryn Chow MD Primary care physician: Yana Mcmanus APRN Consults: Dr. Encarnacion - Discharge Diagnosis Discharge Diagnosis: Hematochezia-resolved Diarrhea-resolved Abdominal pain-markedly improved Fever-resolved Hypothyroidism with elevated TSH despite being on Levothyroxine Hypokalemia-resolved Polysubstance abuse with urine drug screen positive for cocaine, amphetamine, and cannabinoids Large 8 mm renal stone right kidney nonobstructing- - Procedures Procedures: Colonoscopy on 04/18/[address] Thanh Encarnacion-verbal report is of normal colonoscopy. Random biopsies were taken. - Laboratory Labs: Urine drug screen positive for cannabinoids, amphetamines, and cocaine-patient did admit to using all of these substances recently CBC was essentially normal during this hospital stay INR and PTT were normal Comprehensive metabolic was normal other than potassium of 3.5 on admission that improved to 3.9 the following day. CRP was less than 5. Lipase was normal serum qualitative test was negative TSH elevated at 13 UA was normal other than low specific gravity and +1 ketones GI panel was negative Hemoccult stool was negative - Radiology Radiology: Chest x-ray was normal CT abdomen and pelvis with contrast Findings: The lung bases are clear. The liver is normal. The gallbladder, spleen, pancreas and adrenal glands are within normal limits. Kidneys show a few low-attenuation foci which are too small to definitively characterize. Large 8 mm stone in the superior pole of the right kidney. No abdominal or pelvic lymphadenopathy. The bladder appears normal. Uterus is within normal limits. Small amount of free pelvic fluid. Rectum appears normal. Evaluation is somewhat limited given the absence of oral contrast. No evidence of a bowel obstruction. Splenic flexure of the colon is quite decompressed as is the transverse colon. There is suggestion of some colonic wall thickening at the hepatic flexure. The appendix is gas-filled and normal. No evidence of a small bowel obstruction. Bone windows show unilateral right L5 spondylolysis which is incomplete. There are otherwise within normal limits. Impression infectious or inflammatory colitis in the hepatic flexure of the colon. Crohn's disease is within the differential, particularly given the right renal stone. - Pathology Random Colon biopsies are pending History of Present Illness HPI: Patient is a 26-year-old female who presents to the emergency room with 2-3 day history of abdominal pain and rectal bleeding with small amount of blood in vomitus. She reports she initially had bright red blood in her stools and had blood even when she didn't have a bowel movement. She didn't develop abdominal pain until the next day. She states her last bowel movement was the day before yesterday. Yesterday she developed a fever up to 101.8 and cold sweats. She states she hasn't been able to eat yesterday or today, but she has been able to keep down water today and had a V8 yesterday. She reports that the pain comes in waves. It can be anywhere from a 2-3 up to a 7-8 out of 10. Describes it a gnawing pain and typically has nausea associated with the pain. She hasn't taken anything for the pain other than Pepto-Bismol. Reports that didn't help her symptoms. She took 2 ibuprofen 2 weeks ago. States she doesn't typically take ibuprofen. She has a history of being treated for H. pylori with a Prevpac greater than 5 years ago. She describes her symptoms at the time of diagnosis as "the worst abdominal pain I had ever had." She has had no recent travel. No recent antibiotics. No ingestion of undercooked food. She has no family history of ulcerative colitis, Crohn's disease or other gastrointestinal diseases that she is aware of, other than her 9-year-old sister has irritable bowel syndrome- constipation prominent. Objective Vital signs: Temperature 98.1 F 04/18/17 14:41 Pulse Rate 93 04/18/17 15:26 Respiratory Rate 17 04/18/17 14:30 Blood Pressure 133/86 04/18/17 15:26 Pulse Oximetry 100 04/18/17 15:26 Oxygen Delivery Method Room Air Rhythm: Normal Sinus Rhythm Hospital Course This is a general summary of the patient's hospital course. For more details refer to the complete medical record. Hospital course: Hospital admission for observation 04/16/17 17:51 Impression: Bloody diarrhea with abdominal pain and mild hematemesis Diffuse abdominal pain - differential to include ulcerative colitis, Crohn's disease, infectious etiology Hypokalemia-(POA) Hypothyroidism Insomnia Borderline personality disorder Bipolar disorder Generalized anxiety disorder Illicit substance use Plan: Admit to observation under the care of the hospitalist team, Dr. Chow attending, for further workup to include GI panel, stool for occult blood, urinalysis, repeat CBC and CMP in a.m. Start Protonix 40 mg IV for GI prophylaxis and for hematemesis/abdominal pain Zofran IV PRN nausea, morphine IV PRN pain. IV fluids for rehydration - normal saline +20 mEq KCl given mild hypokalemia on admission. Clear liquid diet SCDs for DVT prophylaxis. Avoid Lovenox given GI bleed. Will check TSH given diagnosis of hypothyroidism -patient reports it has been " a long time" since she's had TSH checked. Continue levothyroxine. Patient would likely benefit from psych consult given her untreated bipolar disorder, assuming she would agree to treatment. This could be pursued on OP basis. Continue BuSpar and trazodone for anxiety and insomnia. Will further discuss treatment plan with attending. Upon discharge, patient's care will return to her PCP, Yana Mcmanus APRN, at [facility]. 04/17/17 DC Telemetry as she has no cardiac concerns Increase levothyroxine dose given elevated TSH and repeat TSH as outpatient in 4 -[address] Encarnacion for his expert opinion given the ongoing pain and abnormal findings on CT - continue clear liquids in the event he wants to scope her Continue antibiotics for probable infectious colitis as ordered 04/18/2017 The patient is feeling better today. She did undergo colonoscopy and this did not show any abnormalities. Dr. Encarnacion did obtain random biopsies. He stated she could be dismissed to home from his standpoint if she was eating okay after the procedure. I did come and see the patient after her procedure and she had eaten lunch without difficulties. No nausea or vomiting. She's had no diarrhea other than that produced by the colon prep. She's had no further bloody stools. Abdominal pain is markedly improved. She is feeling well and wants to be discharged to home. Medically she appears stable for dismissal to home. She's had no fevers this hospitalization. On exam today she is alert and oriented and in no acute distress. Chest is clear to auscultation. Cardiovascular reveals a regular rate and rhythm. Abdomen is soft and nontender today. Extremities are free of edema. Dismiss to home in stable condition. She's had no fevers, hematocrit he should have or diarrhea during her hospitalization. White count was normal. GI panel was entirely negative. I will discontinue antibiotics at discharge. She did receive 3 days of Cipro and Flagyl IV. She is to follow-up with Yana Mcmanus at [facility] in 1 week. Her Synthroid was increased from 88 g daily to 100 g daily. She will need a repeat TSH in 4-[address] Encarnacion's office will call her with results of her colon biopsies. She will be discharged on omeprazole 20 mg daily for 10 days. She is not to drive today or tonight because of anesthesia that she received today for her colonoscopy. I recommended that she discontinue all illegal drugs. Discharge Plan - Med Rec/Dispo Referrals/Follow Up: Yana Mcmanus, MARCOS [Family Provider] - 1 Week [facility] Instructions: Colonoscopy (DC), Rectal Bleeding (DC) Additional Instructions: Dr Encarnacion's office will call you regarding your colon biopsy results. Prescriptions: New Levothyroxine Tab [Synthroid] 1 tab PO ACB #30 tab Omeprazole 20 mg PO DAILY #10 tablet. Continue Buspirone [Buspar] 10 mg PO TID Discontinued Levothyroxine Sodium 88 mcg PO ACB #0 No Action Trazodone HCl 150 mg PO HS Discharge Instructions/Outpatient Orders: Final Provider Discharge Instructions Location: Determined By Patient - Disposition 01 Discharged Home, Self-Care
[2017-04-18 17:10] VITALS: BP 105/67; PULSE 87; O2SAT 97
== END 2017-04-18 17:05 | disposition home or self-care (01) | DRG 379 ==
LOC: ED 13:28 → SRG 13:28 → UNDODISIN 04-18 17:05
PROVIDERS: ADMIT Internal Medicine; ATTEND Internal Medicine